=== PATIENT | male | born 1970 | race African-American/Black ===

== ENCOUNTER → 2018-03-12 | Outpatient (CLI) | payer BC ==
--- NOTE | 2018-03-15 15:37 | Diagnostic Imaging Report ---
EXAMINATION: Scrotal ultrasound CLINICAL INDICATION: Scrotal pain. COMPARISON: None. TECHNIQUE: Grayscale and color Doppler evaluation of the scrotum was performed in transverse and longitudinal planes. FINDINGS: The right testicle measures 2.8 x 3.3 x 2.9 cm. There are no masses or calcifications.. The right epididymis measures 0.5 x 1.2 x 1.2 cm. No nodules or masses.. There is no evidence of right hydrocele or varicocele. There is normal flow to the right testicle, without evidence of torsion. The left testicle measures 4.2 x 2.3 x 2.7 cm. There are no masses or calcifications.. The left epididymis measures 1.2 x 0.7 x 1.7 cm. No nodules or masses.. There is no evidence of left hydrocele or varicocele. There is normal flow to the left testicle without evidence of torsion. The scrotum has a normal appearance, without focal lesions. Impression: Unremarkable sonographic appearance of the testes. Signed by: Dr. Nino Griffin M.D. on 03/15/2018 3:34 PM
== END ==
LOC: US 16:37
PROVIDERS: ATTEND Urology
DX: G89.29 Other chronic pain (principal)
CPT/HCPCS: 76870; 93976

== ENCOUNTER 2018-08-12 03:48 | Emergency (ER) | payer BC ==
[~2018-08-12] VITALS: Ht 182.9 cm; Wt 142.0 kg
--- OUTSIDE RECORDS SUMMARY | 2018-08-12 03:51 | XMS REPORT ---
[facility] Address Unknown Phone Unavailable Care Team Providers Care Hair Weaver Name Role Phone BART DUTTON Unavailable Unavailable Payers Payer Name Policy Type Policy Number Effective Date Expiration Date Problems This patient has no known problems. Allergies, Adverse Reactions, Alerts Allergy Name Allergy Type Status Severity Reaction(s) Onset Date Inactive Date Treating Clinician Comments No Known Allergies DA Active U 2018-02-23 00:00:00 Medications This patient has no known medications. Results Test Description Test Time Test Comments Text Results Atomic Results Result Comments US TESTICULAR DOPPLER LTD 2018-03-15 15:32:00 [place] [address] Patient Name: HEAVENLY SERRA MR #: [id number] : 1970 Age/Sex: 47/M Req #: [id number] Adm Physician: Ordered by: BART DUTTON MD Report #: [id number] Location: Room/Bed: Procedure: [id number] US/US TESTICULAR DOPPLER LTD Exam Date: 03/12/18 Exam Time: 1652 REPORT STATUS: Signed EXAMINATION: Scrotal ultrasound CLINICAL INDICAT ION: Scrotal pain. COMPARISON: None. TECHNIQUE: Grayscale and color Doppler evaluation of the scrotum was performed in transverse and longitudinal planes. FINDINGS: The right testicle measures 2.8 x 3.3 x 2.9 cm. There are no masses or calcifications.. The right epididymis measures 0.5 x 1.2 x 1.2 cm. No nodules or masses.. There is no evidence of right hydrocele or varicocele. There is normal flow to the right testicle, without evidence of torsion. The left testicle measures 4.2 x 2.3 x 2.7 cm. There are no masses or calcifications.. The left epididymis measures 1.2 x 0.7 x 1.7 cm. No nodules or masses.. There is no evidence of left hydrocele or varicocele. There is normal flow to the left testicle without evidence of torsion. The scrotum has a normal appearance, without focal lesions. Impression: Unremarkable sonographic appearance of the testes. Signed by: Dr. Ilsa Fontana M.D. on 03/15/2018 3:34 PM Dictated By: ILSA FONTANA MD 1534 Transcribed By: SOLOMON on 03/15/18 1534 COPY TO: BART DUTTON MD TESTICULAR 2018-03-15 15:32:00 [place] [address] Patient Name: HEAVENLY SERRA MR #: [id number] : 1970 Age/Sex: 47/M Req #: [id number] Adm Physician: Ordered by: BART DUTTON MD Report #: [id number] Location: Room/Bed: Procedure: [id number] US/US TESTICULAR Exam Date: 03/12/18 Exam Time: 1652 REPORT STATUS: Signed EXAMINATION: Scrotal ultrasound CLINICAL INDICATION: Scrotal pain. COMPARISON: None. TECHNIQUE: Grayscale and color Doppler evaluation of the scrotum was performed in transverse and longitudinal planes. FINDINGS: The right testicle measures 2.8 x 3.3 x 2.9 cm. There are no masses or calcifications.. The right epididymis measures 0.5 x 1.2 x 1.2 cm. No nodules or masses.. There is no evidence of right hydrocele or varicocele. There is normal flow to the right testicle, without evidence of torsion. The left testicle measures 4.2 x 2.3 x 2.7 cm. There are no masses or calcifications.. The left epididymis measures 1.2 x 0.7 x 1.7 cm. No nodules or masses.. There is no evidence of left hydrocele or varicocele. There is normal flow to the left testicle without evidence of torsion. The scrotum has a normal appearance, without focal lesions. Impression: Unremarkable sonographic appearance of the testes. Signed by: Dr. Ilsa Fontana M.D. on 03/15/2018 3:34 PM Dictated By: ILSA FONTANA MD 1534 Transcribed By: SOLOMON on 03/15/18 1534 COPY TO: BART DUTTON MD
[2018-08-12] MEDS ORDERED: ONDANSETRON HCL INJ 2MG/ML 2ML 2 MG/ML VIAL IV STA (04:07)
[2018-08-12] MEDS ORDERED: KETOROLAC TROMETHAMINE 30 MG/ML VIAL IV STA (04:07)
[2018-08-12] MEDS ORDERED: SODIUM CHLORIDE 0.9% 1000ML 1,000 ML IV STA (04:07)
[2018-08-12 04:26] LABS: BASOPHILS % 0.4 % (0.0-1.0); EOSINOPHILS # (AUTO) 0.1 (0.0-0.4); EOSINOPHILS % 1.8 % (0.0-6.0); HEMATOCRIT 46.3 % (38.2-49.6); LYMPHOCYTES # (AUTO) 2.5 (1.0-3.2); LYMPHOCYTES % 33.2 % (18.0-39.1); MEAN CORPUSCULAR HEMOGLOBIN 31.3 pg (28-32); MEAN CORPUSCULAR HGB CONC 34.6 g/dL (31-35); MEAN CORPUSCULAR VOLUME 90.6 fL (81-99); MONOCYTES # (AUTO) 1.2 (0.2-0.8); MONOCYTES % 15.5 % (4.4-11.3); NEUTROPHILS # (AUTO) 3.7 (2.1-6.9); NEUTROPHILS % 48.7 % (38.7-80.0); PLATELET COUNT 258 x10e3/uL (140-360); RED BLOOD COUNT 5.11 x10e6/uL (4.3-5.7); RED CELL DISTRIBUTION WIDTH 12.5 % (11.7-14.4)
[2018-08-12 04:41] LABS: ALBUMIN 3.9 g/dL (3.5-5.0); ALBUMIN/GLOBULIN RATIO 1.1 (0.8-2.0); ANION GAP 10.9 mmol/L (8-16); CALCIUM 9.8 mg/dL (8.4-10.2); CREATININE, SERUM 1.56 mg/dL (0.72-1.25); POTASSIUM 3.9 mmol/L (3.5-5.1)
[2018-08-12] MEDS ORDERED: SODIUM CHLORIDE 0.9% 50ML 50 ML ONE (05:09)
[2018-08-12] MEDS ORDERED: IOPAMIDOL 370 MG/ML 200 ML INFUS..BTL INJ ONE (05:09)
[2018-08-12 05:19] LABS: CLARITY,URINE CLEAR (CLEAR); COLOR,URINE YELLOW (YELLOW); LEUKOCYTE ESTERASE ,URINE NEGATIVE (NEGATIVE); NITRITE,URINE NEGATIVE (NEGATIVE); PROTEIN,URINE DIPSTICK NEGATIVE (NEGATIVE)
[2018-08-12 05:20] LABS: BACTERIA,URINE FEW /HPF; BILIRUBIN,URINE NEGATIVE (NEGATIVE); EPITHELIAL CELLS,URINE RARE /LPF; KETONES,URINE NEGATIVE (NEGATIVE); RBC,URINE 0-5 /HPF (0-5); URINE UROBILINOGEN 0.2 mg/dL (0.2 - 1); WBC,URINE (MAN) 0-5 /HPF (0-5)
--- NOTE | 2018-08-12 05:24 | Diagnostic Imaging Report ---
EXAMINATION: CHEST SINGLE (PORTABLE) INDICATION: ^ERMD ORDER ^[id number] ^0425 ^Y COMPARISON: None FINDINGS: AP view TUBES and LINES: None. LUNGS: Limited by body habitus. Lungs are well inflated. Central peribronchovascular thickening/cuffing. There is no evidence of pneumonia or pulmonary edema. PLEURA: No pleural effusion or pneumothorax. HEART AND MEDIASTINUM: The cardiomediastinal silhouette is unremarkable. BONES AND SOFT TISSUES: No acute osseous lesion. Soft tissues are unremarkable. UPPER ABDOMEN: No free air under the diaphragm. IMPRESSION: Central peribronchovascular thickening/cuffing. No definite focal consolidation. Signed by: Dr. Mor Sharp MD on 08/12/2018 5:20 AM
--- NOTE | 2018-08-12 06:13 | Diagnostic Imaging Report ---
EXAM: CT Abdomen and Pelvis WITH contrast INDICATION: ^RUQ PAIN ^[id number] ^0527 COMPARISON: None. TECHNIQUE: Abdomen and pelvis were scanned utilizing a multidetector helical scanner from the lung base to the pubic symphysis after administration of IV contrast. Coronal and sagittal reformations were obtained. Dose modulation, iterative reconstruction, and/or weight based adjustment of the mA/kV was utilized to reduce the radiation dose to as low as reasonably achievable. Routine protocol was performed. Scan was performed when during portal venous phase. IV CONTRAST: 100 mL of Isovue-370 ORAL CONTRAST: Water COMPLICATIONS: None RADIATION DOSE: Total DLP: 1326.25 mGy*cm Estimated effective dose: (DLP x 0.015 x size factor) mSv CTDIvol has been reviewed. It is below the limits set by the Radiation Protocol Committee (RPC). FINDINGS: LINES and TUBES: None. LOWER THORAX: Mild dependent atelectasis. Partially imaged subpleural lingular and right middle lobe nodules (series 2, images 1 and 2). HEPATOBILIARY: Diffuse hepatic steatosis. Hepatomegaly. No focal hepatic lesions. No biliary ductal dilation. GALLBLADDER: No radio-opaque stones or sludge. No wall thickening. SPLEEN: No splenomegaly. PANCREAS: No focal masses or ductal dilatation. ADRENALS: No adrenal nodules KIDNEYS/URETERS: Kidneys enhance symmetrically. No hydronephrosis. No cystic or solid mass lesions. No stones. GI TRACT: No abnormal distention, wall thickening, or evidence of bowel obstruction. Colonic diverticulosis without evidence of diverticulitis. Appendix is normal. PELVIC ORGANS/BLADDER: Unremarkable. LYMPH NODES: No lymphadenopathy. VESSELS: Narrowing of the origin of the celiac axis. PERITONEUM / RETROPERITONEUM: No free air or fluid. BONES: Unremarkable. SOFT TISSUES: Unremarkable. IMPRESSION: 1. No acute inflammatory process in the abdomen/pelvis. 2. Enlarged steatotic liver. 3. Partially imaged subpleural right middle lobe and lingular nodules, measuring up to 6 mm. Without risk factors, no follow-up is necessary. With risk factors, follow-up with chest CT in one year is recommended. Signed by: Dr. Mor Sharp MD on 08/12/2018 6:10 AM
[2018-08-12] MEDS ORDERED: DONNATAL/LIDOCAINE/MAALOX 30 ML SUSP PO SCH (06:30)
[2018-08-12] MEDS ORDERED: OMEPRAZOLE40 MG PO (06:41)
--- NOTE | 2018-08-12 06:50 | NUR ---
BEDSIDE REPORT FROM JAMES Figueroa PATIENT AWAITING G.I. COCTAIL AND DISCHARGE
[2018-08-12] MEDS ORDERED: LIDOCAINE VISC 2% SOLN 15 ML UDC ONE (07:04)
[2018-08-12] MEDS ORDERED: BELLADONNA ALK/PHENOBARBITAL 5 ML UDC ONE (07:04)
[2018-08-12] MEDS ORDERED: MAGNESIUM/ALUMINUM/SIMETHICONE 30 ML UDC ONE (07:04)
--- NOTE | 2018-08-12 07:09 | NUR ---
BP 146/104, PATIENTS GIVING PATIENT HIS MORNING MEDICATION NOW
== END 2018-08-12 07:52 | disposition home or self-care (01) ==
LOC: ER 03:48
DX: R10.13 Epigastric pain (principal); R10.11 Right upper quadrant pain
CPT/HCPCS: 36415; 71045; 74177; 80053; 81001; 83690; 85025; 99284; J1885; J2405; J7030; Q9967